=== PATIENT | female | born 1990 | race Two or more races ===

== ENCOUNTER 2017-05-30 06:39 | Emergency (ER) | payer OTHER ==
[~2017-05-30] VITALS: Ht 165.1 cm; Wt 61.2 kg
[2017-05-30 06:42] VITALS: BP 127/73
== END 2017-05-30 07:05 | disposition other institution (70) ==
LOC: ED 06:39
DX: Z02.89 Encounter for other administrative examinations (principal); V49.60XA Unspecified car occupant injured in collision with unspecified motor vehicles in traffic accident, initial encounter; W22.12XA Striking against or struck by front passenger side automobile airbag, initial encounter; Y93.89 Activity, other specified; Y99.8 Other external cause status; Y92.89 Other specified places as the place of occurrence of the external cause